=== PATIENT | female | born 1965 | race Caucasian/White ===

== ENCOUNTER → 2021-10-07 | Day surgery (SDC) | payer OTHER ==
[~2021-10-07] MED LIST: CELEBREX200 MG PO; CETIRIZINE HCL10 MG PO; HYDROCODON-ACE1 EAC4 PO; MOBIC15 MG PO; NEURONTIN600 MG PO; NP THYROID60 MG PO; OMEPRAZOLE20 M1 PO; PRAVASTATIN SOD40 MG PO; PROZAC40 MG PO; SINGULAIR10 MG PO; TRAZODONE HCL300 MG PO; TRIAMTERENE-HC1 EAC1 PO; WELLBUTRIN SR150 MG PO; WELLBUTRIN XL300 MG PO
[2021-10-07 07:36] LABS: BUN/CREATININE RATIO 31 (0-10)
== END | disposition home or self-care (01) ==
LOC: OR 06:28
PROVIDERS: Orthopaedic Surgery
DX: G56.03 Carpal tunnel syndrome, bilateral upper limbs (principal); E03.9 Hypothyroidism, unspecified; E78.5 Hyperlipidemia, unspecified; K21.9 Gastro-esophageal reflux disease without esophagitis; F41.9 Anxiety disorder, unspecified; F32.A Depression, unspecified; Z88.0 Allergy status to penicillin; Z79.899 Other long term (current) drug therapy; Z20.822 Contact with and (suspected) exposure to COVID-19
CPT/HCPCS: 36415; 80048; J1100; J2001; J2250; J2405; J2704; J3010; J7120

== ENCOUNTER → 2022-02-21 | Outpatient (CLI) | payer OTHER | LOC: KOH-I 14:57 | DX: M79.671 Pain in right foot (principal); M79.672 Pain in left foot | CPT/HCPCS: 73630 ==

== ENCOUNTER → 2022-05-24 | Outpatient (CLI) | payer OTHER | LOC: KOH-I 10:25 | DX: R07.81 Pleurodynia (principal); M54.9 Dorsalgia, unspecified; J98.09 Other diseases of bronchus, not elsewhere classified; M47.814 Spondylosis without myelopathy or radiculopathy, thoracic region | CPT/HCPCS: 71046; 72070 ==